=== PATIENT | female | born 1985 | race Caucasian/White ===

== ENCOUNTER 2019-04-05 21:48 | Emergency (ER) | payer SELFPAY | END 2019-04-06 03:39 | disposition home or self-care (01) | LOC: FTE 21:48 | DX: R20.2 Paresthesia of skin (principal); J45.909 Unspecified asthma, uncomplicated | CPT/HCPCS: 72040; 99283-25 ==

== ENCOUNTER 2019-07-22 22:42 | Emergency (ER) | payer OTHER ==
[2019-07-23] MEDS: ACETAMINOPHEN 325 MG TAB PO (01:55)
== END 2019-07-23 03:48 | disposition home or self-care (01) ==
LOC: FTE 22:42
DX: S49.92XA Unspecified injury of left shoulder and upper arm, initial encounter (principal); W18.39XA Other fall on same level, initial encounter; Y92.9 Unspecified place or not applicable
CPT/HCPCS: 72040; 73010; 99283-25